=== PATIENT | female | born 1950 | race Caucasian/White ===

== ENCOUNTER 2020-10-14 20:01 | Emergency (ER) | payer MEDICARE, SELFPAY ==
--- NOTE | 2020-10-14 20:18 | ED.FEMALEGU ---
HPI - Female Genitourinary General Chief complaint: Urogenital-Female Stated complaint: UTI Source: patient and RN notes reviewed Limitations: no limitations History of Present Illness HPI Narrative: Patient, on several routine meds, presents with a shorter couple day history of definite urinary frequency, urgency and dysuria-like prior UTI about a year ago. No low back pain, vomiting/diarrhea, abdominal pain, blood; symptoms mild, worse with micturition and unimproved with OTC Azo Related Data Home Medications Medication Instructions Recorded Confirmed amlodipine 10/14/20 buspirone mg 10/14/20 hydrochlorothiazide 10/14/20 lisinopril 10/14/20 metoprolol succinate PO 10/14/20 rosuvastatin mg 10/14/20 Allergies Allergy/AdvReac Type Severity Reaction Status Date / Time No Known Allergies Allergy Verified 09/16/18 12:27 Review of Systems Review of Systems: Narrative: General/Constitutional: No weight loss,fever Eyes: N0: Redness,discharge Ears/Nose/Throat: No: Epistaxis,ear discharge Respiratory: Denies: Hemoptysis Gastrointestinal: No Vomiting, Bleeding-rectal Skin: No Lumps, eruption Neurologic: No Focal Weakness,Sz Hematologic: Denies: Petechiae/Purpura Psychiatric: No: Suicida ideationl All Other Systems: Reviewed and Negative [facility] Family History Family History (Updated 09/27/18 @ 14:13 by DOCTOR UNKNOWN) Sibling Diabetes mellitus Hypertension Comments At time of signature, agree with nursing past medical, surgical, social and family history. There is no relevant family history pertinent to the presenting complaint Exam Narrative: Exam Narrative: General Appearance: Well appearing, No distress EYE: PERRLA, Conjunctiva clear Ears: External ear normal Nose: Normal nose Mouth/Throat: Normal appearing, Normal lips Neck: Supple Respiratory: Airway patent, No respiratory distress Abdomen: Soft, Non-tender, Musculoskeletal: Full ROM Skin: Warm, Dry Neurological: A&O x3, CN II-X intact Psychiatric: Normal mood, Normal affect Course Vital Signs Vital signs: Vital Signs Temperature 98.2 F 10/14/20 20:25 Pulse Rate 60 10/14/20 20:25 Respiratory Rate 18 10/14/20 20:25 Blood Pressure 151/65 H 10/14/20 20:25 Pulse Oximetry 100 10/14/20 20:25 Temperature 98.2 F 10/14/20 20:46 Pulse Rate 60 10/14/20 20:46 Respiratory Rate 18 10/14/20 20:46 Blood Pressure 151/65 H 10/14/20 20:46 Pulse Oximetry 100 10/14/20 20:46 MDM - Female Genitourinary Lab Data Labs: Urine Glucose Trace Reference Range: Negative Urine Glucose Trace Reference Range: Negative Urine Bilirubin Negative Reference Range: Negative Urine Bilirubin Negative Reference Range: Negative Urine Ketone Negative Reference Range: Negative Urine Ketone Negative Reference Range: Negative Urine Specific [place] 1.020 Reference Range:1.001-1.035 Urine Specific [place] 1.020 Reference Range:1.001-1.035 Urine Blood 3+ Reference Range: Negative * * Urine pH 5.0 Reference Range: 5.0-9.0 Urine pH 5.0 Reference Range: 5.0-9.0 Urine Protein 3+
[2020-10-14 20:25] VITALS: BP 151/65; PULSE 60; RESP 18; TEMP 36.8; O2SAT 100
[2020-10-14 20:46] VITALS: BP 151/65; PULSE 60; RESP 18; TEMP 36.8; O2SAT 100
== END 2020-10-14 21:05 | disposition home or self-care (01) ==
PROVIDERS: Emergency Provider Emergency Medicine
DX: N30.00 Acute cystitis without hematuria (principal); K21.9 Gastro-esophageal reflux disease without esophagitis; I10 Essential (primary) hypertension
CPT/HCPCS: 81003; 87077; 87086; 87186; 99213; G0463

== ENCOUNTER 2022-10-13 10:02 | Emergency (ER) | payer MEDICARE, SELFPAY ==
--- NOTE | 2022-10-13 10:06 | ED.FEMALEGU ---
HPI - Female Genitourinary General Chief complaint: Urogenital-Female Stated complaint: uti symptoms Time Seen by Provider: 10/13/22 10:36 Source: patient and RN notes reviewed Mode of arrival: ambulatory Limitations: no limitations History of Present Illness HPI Narrative: 72-year-old female presents concern for 2 day history of feeling poorly, nauseated with suprapubic discomfort. She reports urinary frequency, urgency, dysuria. She denies vomiting, back pain, fever, chills, sweats. She reports trying to drink more fluids. MD elicited complaint: UTI Related Data Home Medications Medication Instructions Recorded Confirmed buspirone 10 mg tablet 10 mg DIRECTED 10/14/20 10/13/22 hydrochlorothiazide 25 mg tablet 25 mg DIRECTED 10/14/20 10/13/22 lisinopril 20 mg tablet 20 mg DIRECTED 10/14/20 10/13/22 metoprolol succinate 25 mg 25 mg PO DIRECTED 10/14/20 10/13/22 tablet,extended release 24 hr rosuvastatin 20 mg tablet 20 mg DIRECTED 10/14/20 10/13/22 ezetimibe 10 mg tablet 10 mg DIRECTED 10/13/22 10/13/22 Allergies Allergy/AdvReac Type Severity Reaction Status Date / Time No Known Allergies Allergy Verified 09/16/18 12:27 Review of Systems Review of Systems: CONSTITUTIONAL: Denies malaise, chills, sweats, or fever. CARDIOVASCULAR: Denies chest pain, palpitations, or edema. RESPIRATORY: Denies cough or dyspnea. GASTROINTESTINAL: Denies abdominal pain, vomiting, diarrhea. Reports nausea GENITOURINARY: Reports dysuria, frequency, urgency, suprapubic pressure. Denies flank pain or hematuria. SKIN: Denies rash or itching. MUSCULOSKELETAL: Denies back pain or myalgia. All systems reviewed & are unremarkable except as noted in HPI and below PMFSH Family History Family History (Updated 09/27/18 @ 14:13 by DOCTOR UNKNOWN) Sibling Diabetes mellitus Hypertension Comments At time of signature, agree with nursing past medical, surgical, social and family history. There is no relevant family history pertinent to the presenting complaint Exam Narrative: GENERAL: Well-appearing, well-nourished, and in no acute distress. HEAD: Normocephalic. EYES: PERRLA, conjunctivae clear. NECK: Supple. No lymphadenopathy CHEST: Clear to auscultation. No respiratory distress. HEART: Regular rate and rhythm. ABDOMEN: Soft, nontender upon palpation, nondistended, normal active bowel sounds, no palpable or pulsatile masses, no guarding. No CVA tenderness SKIN: Warm, dry, no rash. NEURO: Alert and oriented x3. PSYCH: Normal mood and affect Course Course Emergency Course: Patient is aware of diagnosis, understands and agrees to treatment plan. Anticipatory guidance given. Patient agrees to follow-up as directed and is aware of reasons to seek care at the emergency department. Portions of this record may have been created with voice recognition software Level of Care: Express Care Visit Vital Signs Vital signs: Reviewed. MDM - Female Genitourinary MDM Narrative Medical decision making narrative: Exam findings and UA show no acute concerns or changes; patient is non-toxic appearing and is in no distress. Patient is appropriate for outpatient treatment and follow-up. Differential Diagnosis Differential diagnosis: Likely urinary tract infection and cystitis Critical Care Time Critical Care Time Critical Care Time: No Discharge Plan Discharge Clinical Impression: Urinary tract infection Patient Disposition: Home, Self-Care Condition: Stable Instructions: Antibiotic Form, Urinary Tract Infection in Women (ED) Additional Instructions: We will send a urine culture to the lab; if the culture identifies an organism that the prescribed antibiotic will not treat, you will receive a phone call from an urgent care staff member and an appropriate antibiotic will be prescribed. -Your symptoms should begin to improve within a day of starting antibiotics. But you should finish all the anti
[2022-10-13 10:21] VITALS: BP 113/51; PULSE 68; RESP 16; TEMP 36.5; O2SAT 99
== END 2022-10-13 10:55 | disposition home or self-care (01) ==
PROVIDERS: Emergency Provider Nurse Practitioner; PCP Family Medicine
DX: N39.0 Urinary tract infection, site not specified (principal); E78.00 Pure hypercholesterolemia, unspecified; I10 Essential (primary) hypertension; K21.9 Gastro-esophageal reflux disease without esophagitis
CPT/HCPCS: 81003; 87077; 87086; 87186; 99213; G0463

== ENCOUNTER 2023-03-18 09:39 | Emergency (ER) | payer MEDICARE, SELFPAY ==
[2023-03-18 09:54] VITALS: BP 108/54; PULSE 60; RESP 18; TEMP 36.2; O2SAT 100
--- NOTE | 2023-03-18 09:59 | ED.FEMALEGU ---
HPI - Female Genitourinary General Chief complaint: Urogenital-Female Stated complaint: UTI Time Seen by Provider: 03/18/23 09:40 Source: patient Mode of arrival: ambulatory Limitations: no limitations History of Present Illness HPI Narrative: Martine is a 72-year-old female patient presenting to the clinic today with complaints of possible UTI. She reports she has been having burning, urinary frequency, urgency, and some retention for the past week. Related Data Home Medications Medication Instructions Recorded Confirmed buspirone 10 mg tablet 10 mg DIRECTED 10/14/20 03/18/23 hydrochlorothiazide 25 mg tablet 25 mg DIRECTED 10/14/20 03/18/23 lisinopril 20 mg tablet 20 mg DIRECTED 10/14/20 03/18/23 metoprolol succinate 25 mg 25 mg PO DIRECTED 10/14/20 03/18/23 tablet,extended release 24 hr rosuvastatin 20 mg tablet 10 mg PO DAILY 10/14/20 03/18/23 ezetimibe 10 mg tablet 10 mg DIRECTED 10/13/22 03/18/23 omeprazole 20 mg capsule,delayed 20 mg PO DAILY 03/18/23 03/18/23 release Allergies Allergy/AdvReac Type Severity Reaction Status Date / Time No Known Allergies Allergy Verified 03/18/23 10:05 Review of Systems Review of Systems: Pertinent positives per HPI. Patient denies any fever, chills, rash, headache, visual changes, dizziness, cough, runny nose, sore throat, shortness of breath, chest pain, palpitations, nausea, vomiting, diarrhea, constipation, abdominal pain. PMFSH Family History Family History Sibling Diabetes mellitus Hypertension Comments At the time of my signature, I reviewed and agree with the nursing past medical, surgical, social, and family history. There is no relevant family history pertinent to the patient complaint. Exam Narrative: General: Well-developed, well nourished, in no apparent distress. Head: Normocephalic, atraumatic. Cardio: Regular rate and rhythm, s1 and s2 normal, no murmur appreciated. Resp: Clear to auscultation bilaterally, no rhonchi, rales, wheezing or rubs. Abdomen: Soft, pliable, bowel sounds present in all quadrants, non-tender to palpation, no organomegly, no CVAT tenderness. Course Course Emergency Course: Portions of this record may have been created with voice recognition software. Level of Care: Express Care Visit Vital Signs Vital signs: Vital Signs Temperature 36.2 C L 03/18/23 09:54 Pulse Rate 60 03/18/23 09:54 Respiratory Rate 18 03/18/23 09:54 Blood Pressure 108/54 L 03/18/23 09:54 Pulse Oximetry 100 03/18/23 09:54 Oxygen Delivery Room Air 03/18/23 09:54 Temperature 36.2 C L 03/18/23 09:54 Pulse Rate 60 03/18/23 09:54 Respiratory Rate 18 03/18/23 09:54 Blood Pressure 108/54 L 03/18/23 09:54 Pulse Oximetry 100 03/18/23 09:54 Oxygen Delivery Room Air 03/18/23 09:54 Vital signs reviewed MDM - Female Genitourinary MDM Narrative Medical decision making narrative: At the time of visit patient is resting comfortably on the exam table. Patient appears to be nontoxic. UA is positive for blood, leukocytes, and protein. We will send for culture. Will place the patient on Augmentin. Supportive measures were discussed with the patient and they voiced understanding discharge instructions and agrees to treatment plan. Return precautions reviewed Differential Diagnosis Differential diagnosis: Likely urinary tract infection and cystitis Discharge Plan Discharge Clinical Impression: Urinary tract infection Qualifiers: Urinary tract infection type: acute cystitis Hematuria presence: with hematuria Qualified Code(s): N30.01 - Acute cystitis with hematuria Patient Disposition: Home, Self-Care Condition: Stable Instructions: Antibiotic Form, Urinary Tract Infection in Older Adults (ED) Additional Instructions: UA is positive for 2+ leukocytes, 1+ protein, and 2+ blood. Will send urine for culture. Take Augmentin
== END 2023-03-18 10:16 | disposition home or self-care (01) ==
PROVIDERS: Emergency Provider Nurse Practitioner Family; PCP Family Medicine
DX: N30.01 Acute cystitis with hematuria (principal); B96.1 Klebsiella pneumoniae [K. pneumoniae] as the cause of diseases classified elsewhere; E78.00 Pure hypercholesterolemia, unspecified; I10 Essential (primary) hypertension; K21.9 Gastro-esophageal reflux disease without esophagitis; M19.90 Unspecified osteoarthritis, unspecified site
CPT/HCPCS: 81003; 87077; 87086; 87186; 99213; G0463

== ENCOUNTER 2024-01-12 18:24 | Emergency (ER) | payer MEDICARE, SELFPAY ==
--- NOTE | 2024-01-12 18:25 | ED.SKABFB ---
HPI - Skin/Abscess/Foreign Bdy General Chief complaint: Skin/Abscess/Foreign Body Stated complaint: spider bites Time Seen by Provider: 01/12/24 18:34 Source: patient, RN notes reviewed and old records reviewed Mode of arrival: ambulatory Limitations: no limitations History of Present Illness HPI narrative: 73-year-old female presents to the [facility] with concerns sores the her back for 5 days. Patient reports that she has been applying Campho-Phenique and Neosporin Related Data Home Medications Medication Instructions Recorded Confirmed buspirone 10 mg tablet 10 mg DIRECTED 10/14/20 03/18/23 hydrochlorothiazide 25 mg tablet 25 mg DIRECTED 10/14/20 03/18/23 lisinopril 20 mg tablet 20 mg DIRECTED 10/14/20 03/18/23 metoprolol succinate 25 mg 25 mg PO DIRECTED 10/14/20 03/18/23 tablet,extended release 24 hr rosuvastatin 20 mg tablet 10 mg PO DAILY 10/14/20 03/18/23 ezetimibe 10 mg tablet 10 mg DIRECTED 10/13/22 03/18/23 omeprazole 20 mg capsule,delayed 20 mg PO DAILY 03/18/23 03/18/23 release Allergies Allergy/AdvReac Type Severity Reaction Status Date / Time No Known Allergies Allergy Verified 03/18/23 10:05 Review of Systems Review of Systems: All systems reviewed & are unremarkable except as noted in HPI and below Constitutional: Constitutional: Reports no additional constitutional complaints ENT: Reports system reviewed and no additional complaints, except as documented Cardiovascular: Cardiovascular: Reports no additional cardiovascular complaints, Denies chest pain and Denies dyspnea Respiratory: Respiratory: Reports no additional respiratory complaints, Denies chest congestion, Denies cough and Denies dyspnea Gastrointestinal: Gastrointestinal: Reports no additional gastrointestinal complaints, Denies abdominal pain, Denies nausea and Denies vomiting Musculoskeletal: Musculoskeletal: Reports no additional musculoskeletal complaints Integumentary/Breasts: Skin/Breast: Reports as per HPI [facility] Family History Family History Sibling Diabetes mellitus Hypertension Comments At the time of my signature, I reviewed and agree with the nursing past medical, surgical, social, and family history. There is no relevant family history pertinent to the patient complaint. Exam Const: General: cooperative, healthy appearing, comfortable, no acute distress, well developed, alert and well nourished Nutritional Appearance: well nourished Orientation/consciousness: patient oriented x3 Limitations: no limitations HENMT: Head: normal to inspection Ears: hearing grossly normal bilaterally and external ears normal Face/Nose/Sinus: Normal external nose present, normal facial exam and face symmetric Face and sinus: normal facial exam and face symmetric Eyes: General: appearance normal, both eyes and all related structures Alignment and Position: alignment normal Periorbital: periorbital findings normal Neck: Neck: normal visual inspection, full ROM, no lymphadenopathy and no meningeal signs Chest: Chest palpation & inspection: normal inspection of the chest Resp: Effort & Inspection: normal respiratory effort and able to speak in complete sentences Auscultation: clear to auscultation bilaterally, no crackles, no rales, no rhonchi and no wheezes Cardio: Rate: regular rate Skin: General skin exam: normal color and no rashes or lesions noted Lesions: no lesions Rashes: no rashes Wounds: no wounds Other: 2 lesions both scabbed over with mild pink area surrounding, no increased warmth. Areas to the lower back. Both approximately 1 cm in diameter Neuro: General: patient oriented x3, gait normal, tone normal, moves all extremities and no meningeal signs Cognition (Neuro): normal cognition Speech: normal speech Gait exam (Neuro): Normal gait present Extrem: General: normal to inspection, full ROM, capillary refill normal and normal gait
[2024-01-12 18:34] VITALS: BP 115/72; PULSE 62; RESP 16; TEMP 36.7; O2SAT 100
== END 2024-01-12 18:43 | disposition home or self-care (01) ==
PROVIDERS: Emergency Provider Nurse Practitioner
DX: L98.9 Disorder of the skin and subcutaneous tissue, unspecified (principal)
CPT/HCPCS: 99213; G0463